=== PATIENT | female | born 1955 | race Caucasian/White ===

== ENCOUNTER 2023-11-16 18:58 | Emergency (ER) | payer MEDICARE, BC, SELFPAY ==
[2023-11-16 18:59] VITALS: BP 110/78
[2023-11-16] MEDS: NSS 1000 IV (19:42)
[2023-11-16] MEDS: ZOFRAN 4 MG IV (19:43)
[2023-11-16 19:44] LABS: % Basophils 0.6 % (0-2); % Eosinophils 1.5 % (0-6); % Immature Granulocytes 0.3 % (0-0.5); % Lymphocytes 17.9 % (20.5-51.1); % Neutrophils 68.7 % (42.2-75.2); Absolute Eosinophils 0.1 10^3/uL (0-0.7); Absolute Lymphocytes 1.3 10^3/uL (1.2-3.4); Absolute Monocytes 0.8 10^3/uL (0.1-0.6); Absolute Neutrophils 4.9 10^3/uL (1.4-6.5); Hematocrit 42.4 % (37.0-47.0); Hemoglobin 15.3 g/dL (12.0-16.0); Mean Corp Hgb Conc. 36.1 g/dL (33.0-37.0); Mean Corpuscular Hgb 28.8 pg (27.0-31.0); Mean Corpuscular Volume 79.8 fL (81.0-99.0); Mean Platelet Volume 8.6 fL (7.4-10.4); Nucleated Red Blood Cells % 0 %; Platelet Count 229 10^3/uL (130-400); Red Blood Cell Count 5.31 10^6/uL (4.20-5.40); Red Cell Dist. Width 12.7 % (11.5-14.5); White Blood Cell Count 7.2 10^3/uL (4.8-10.8)
[2023-11-16 20:01] LABS: ALT (SGPT) 130 U/L (0-35); AST (SGOT) 75 U/L (14-36); Albumin 4.1 g/dl (3.5-5.0); Alkaline Phosphatase 90 U/L (38-126); Blood Urea Nitrogen 27 mg/dl (7-17); Calcium 9.5 mg/dl (8.4-10.2); Carbon Dioxide 17 mmol/L (22-30); Chloride 101 mmol/L (98-107); Glucose 116 mg/dl (70-99); Potassium 4.1 mmol/L (3.5-5.1); Sodium 132 mmol/L (135-145); Total Bilirubin 0.7 mg/dl (0.2-1.3); Total Protein 6.6 g/dl (6.3-8.2); eGFR > 60.00
[2023-11-16 20:34] LABS: Lipase 58 U/L (23-300)
--- NOTE | 2023-11-16 21:01 | ED.GENMED ---
History of Present Illness
General
Chief Complaint: Abdominal Symptoms
Source: patient and spouse
Exam Limitations: none
Time Seen by Provider: 11/16/23 19:15
Nursing documentation reviewed up to this point in time: agreed with
History of Present Illness
History of Present Illness:
68-year-old female with past medical history of hypothyroidism presenting to the emergency department today with concerns of nausea vomiting diarrhea over the past 5 days has had difficulty tolerating by mouth since onset of symptoms. Had low-grade
temperature but that is since resolved today. Denies any chest pain shortness of breath any blood in her stool or vomit
Past History
Past History
ED Past Medical History: Hypothyroidism and Other (DVT PE)
ED Past Surgical History: and Orthopedic
Social History
Tobacco: Non-smoker
Alcohol: Occasional
Drug: None
Personal:
Living: with family
Employment: Employed
Review of Systems
Review of Systems
Allergies reviewed?: Yes
All Other Systems: ROS reviewed and negative except as documented in HPI and ROS
Phy Exam
Physical Exam
Physical Exam:
GENERAL: Alert , in no apparent distress
EYE: pupils equal and reactive
NECK: Supple, no significant adenopathy.
ENT: o/p clr, mmm.
CARDIAC: Regular rate and rhythm .
LUNGS: Clear breath sounds bilaterally, no acute respiratory distress, no wheezes/rales/rhonchi
ABDOMEN: Soft, without focal tenderness, no r/g, no cvat
NEUROLOGICAL: Alert and oriented, no focal neuro deficits
SKIN: Warm and dry, skin intact.
MUSCULOSKELETAL: No edema, well perfused.
PSYCH: Normal and appropriate interaction.
Course
Orders/Labs/Results
Orders:
Orders
11/16/23 19:29
Urinalysis Reflex To Culture Urgent
Date Specimen was Collected: 11/16/23
Time Specimen was Collected: 20:28
0.9% Sodium Chloride 1000 ml [Nss] 1,000 ml IV BOLUS
Ondansetron Injectable [Zofran] 4 mg IV NOW STA
11/16/23 19:35
Complete Blood Count/With Diff Urgent
Comprehensive Metabolic Panel Urgent
Lipase Urgent
11/16/23 20:47
STOOL [C difficile Antigen & Toxins] Urgent
MARIA ALEJANDRA Source: Feces/Stool
Specimen Description:
Date Specimen was Collected: 11/16/23
Time Specimen was Collected: 20:46
Stool Culture Urgent
MARIA ALEJANDRA Source: Feces/Stool
Specimen Description:
Date Specimen was Collected: 11/16/23
Time Specimen was Collected: 20:46
11/16/23 22:46
Loperamide [Imodium] 2 mg PO NOW STA
11/16/23 22:59
Loperamide [Imodium] 4 mg PO NOW STA
Abnormal Lab Results
11/16/23
19:35
MCV 79.8 L fL
(81.0-99.0)
Absolute Monos (auto) 0.8 H 10^3/uL
(0.1-0.6)
Lymphocytes % 17.9 L %
(20.5-51.1)
Monocytes % 11.0 H %
(1.7-9.3)
Sodium 132 L mmol/L
(135-145)
Carbon Dioxide 17 L mmol/L
(22-30)
BUN 27 H mg/dl
(7-17)
Glucose 116 H mg/dl
(70-99)
AST 75 H U/L
(14-36)
ALT 130 H U/L
(0-35)
11/16/23 19:35
11/16/23 19:35
Vital Signs
Initial and Last Documented VS:
Initial Vital Signs
Temp Pulse Resp BP Pulse Ox
98.1 F 108 24 110/78 98
11/16/23 18:59 11/16/23 18:59 11/16/23 18:59 11/16/23 18:59 11/16/23 18:59
Last Documented Vital Signs
Temp Pulse Resp BP Pulse Ox
98.1 F 80 17 107/80 97
11/16/23 18:59 11/16/23 22:38 11/16/23 22:38 11/16/23 22:38 11/16/23 22:41
MDM/Problems Addressed
MDM/Problems Addressed:
68-year-old female presenting to the emergency today with concerns of nausea vomiting diarrhea past 5 days initially had a low-grade since resolved. No abdominal pain here initially mildly tachycardic but improving after receiving fluids. Denies
any chest pain shortness of breath. Patient generally well-appearing no abdominal pain labs showing elevated BUN to creatinine ratio consistent with mild dehydration consistent with patient's symptoms. Patient was given Zofran no active vomiting
here was given a stool sample but feeling well stable for outpatient management precautions given.
*Critical Care Note
Total Time (30-74mins, 75-104mins- exclusive of procedures): Not Applicable
ED Attending Note
-
Portions of this chart may have been created with voice recognition software.� Occasional wrong word or��sound alike� substitutions may have occurred due to the inherent limitations of voice recognition software.
Discharge Plan
Departure
Patient Disposition: Home (Routine Discharge)
Date of Disposition: 11/16/23
Time of Disposition: 23:04
Patient with high blood pressure during this ER visit?: No
Condition: Good
Covid-19: Not Applicable
Discharge Problem:
Diarrhea, Nausea
Instructions: Diarrhea in teens and adults
Prescriptions:
New
ondansetron 4 mg tablet,disintegrating
4 mg PO Q6H PRN (Reason: nausea and vomiting) Qty: 7 0RF
No Action
levothyroxine 75 MCG tablet
75 mcg PO DAILY
aspirin 81 MG tablet,chewable
81 mg PO DAILY 0RF
cephalexin 500 mg capsule
500 mg PO Q8H Qty: 21 0RF
Referrals:
Trisha Dorado MD [Family Provider] -
Activity Restrictions/Additional Instructions:
You came to the emergency department today with concerns of ongoing diarrhea and nausea. You had a reassuring assessment. Please take Zofran as well as Imodium over the next few days and return for any worsening, new or concerning symptoms.
Interventions
Interventions:
*Risk Screen - Suicide Last Done: 11/16/23 18:59
*General Assessment Last Done: 11/16/23 22:53
*Neglect/Abuse Screening Last Done: 11/16/23 18:59
ED- Fall Risk Assessment Last Done: 11/16/23 20:51
*ED COVID-19 Vaccine History Last Done: 11/16/23 22:53
[facility] Assessment Last Done: 11/16/23 20:50
Discharge Date and Time
Print Language: FIJIAN
[2023-11-16 22:38] VITALS: BP 107/80
[2023-11-16] MEDS: IMODIUM 2 MG PO (22:50)
[2023-11-17 00:35] VITALS: BP 111/81
== END 2023-11-17 00:37 | disposition home or self-care (01) ==
LOC: EMR 18:58
PROVIDERS: Physician Assistant; EMERGENCY PHYSICIAN Emergency Medicine; FAMILY PHYSICIAN Family Medicine
DX: R19.7 Diarrhea, unspecified (principal); R11.2 Nausea with vomiting, unspecified; E03.9 Hypothyroidism, unspecified; F41.9 Anxiety disorder, unspecified; Z86.711 Personal history of pulmonary embolism; Z86.718 Personal history of other venous thrombosis and embolism; Z86.16 Personal history of COVID-19; Z79.82 Long term (current) use of aspirin; Z88.0 Allergy status to penicillin
CPT/HCPCS: 99284; 96374; 96361; 80053; 83690; 85025; 87045; 87046; 87324; 87427; 87449

== ENCOUNTER → 2024-08-23 12:36 | Outpatient (REF) | payer MEDICARE, BC, SELFPAY | LOC: WDC 12:36 | PROVIDERS: ATTENDING PHYSICIAN Family Medicine | DX: Z12.31 Encounter for screening mammogram for malignant neoplasm of breast (principal); Z78.0 Asymptomatic menopausal state | CPT/HCPCS: 77063; 77067 ==

== ENCOUNTER → 2024-09-03 15:40 | Outpatient (REF) | payer MEDICARE, BC, SELFPAY | LOC: PAVMRI 15:40 | PROVIDERS: ATTENDING PHYSICIAN Physician Assistant Surgical; FAMILY PHYSICIAN Family Medicine | DX: M25.561 Pain in right knee (principal) | CPT/HCPCS: 73721 ==

== ENCOUNTER → 2024-09-05 10:22 | Outpatient (REF) | payer MEDICARE, BC, SELFPAY | LOC: WDC 10:22 | PROVIDERS: ATTENDING PHYSICIAN Family Medicine | DX: R92.8 Other abnormal and inconclusive findings on diagnostic imaging of breast (principal) | CPT/HCPCS: 76642 ==